=== PATIENT | female | born 1965 | race Caucasian/White ===

== ENCOUNTER 2017-03-23 11:08 | Observation (INO) | payer OTHER ==
[~2017-03-23] VITALS: Ht 162.6 cm; Wt 54.2 kg
[2017-03-23] MEDS ORDERED: ESOMEPRAZOLE MA20 MG PO (11:56)
[2017-03-23 13:03] LABS: HEMATOCRIT 40.9 % (36.0-46.0); MCH 29.1 PG (29.0-34.0); MCHC 33.5 G/DL (30.0-36.0); MCV 86.8 FL (83-99); MEAN PLAT.VOLUME 9.7 uM^3 (9.5-12.4); PLATELET COUNT 268 K/uL (156-360); RBC DIS.WIDTH-CV 11.8 % (11.8-14.6); RBC DIS.WIDTH-SD 38.1 % (39-53); RED BLOOD COUNT 4.71 M/uL (3.80-5.20); WHITE BLOOD COUNT 11.8 K/uL (4.1-10.2)
[2017-03-23 13:11] LABS: CHLORIDE 102 mEq/L (99-109); SODIUM 141 mEq/L (136-147)
[2017-03-23 13:13] LABS: GLUCOSE 84 mg/dL (70-99)
[2017-03-23 13:14] LABS: ANION GAP 11 MEQ/L (2-14)
[2017-03-23 13:15] LABS: TOTAL BILIRUBIN 0.6 mg/dL (0.0-1.0)
[2017-03-23 13:17] LABS: ALKALINE PHOSPHATASE 58 IU/L (3-129); GFR ESTIMATE (CALCULATED) > 59 mL/min/
[2017-03-23 13:18] LABS: UREA NITROGEN (BUN) 9 mg/dL (9-23)
[2017-03-23 13:24] LABS: TROP-I INTERPRETATION NEGATIVE; TROPONIN-I < 0.01 ng/mL (0.0-0.30)
[2017-03-23 15:20] LABS: TROP-I INTERPRETATION NEGATIVE; TROPONIN-I < 0.01 ng/mL (0.0-0.30)
[2017-03-23] MEDS ORDERED: VITAMIN D31000 UNIT PO (15:51)
[2017-03-23] MEDS ORDERED: ONE-A-DAY ESSE1 EAC1 PO (15:51)
[2017-03-23] MEDS ORDERED: BENADRYL ALLERG25 MG PO (15:51)
[2017-03-23 17:53] VITALS: BP 115/69
[2017-03-23 19:29] VITALS: BP 104/67
[2017-03-23 22:12] LABS: TROP-I INTERPRETATION NEGATIVE; TROPONIN-I < 0.01 ng/mL (0.0-0.30)
[2017-03-23 23:27] VITALS: BP 99/59
[2017-03-24 04:00] VITALS: BP 90/61
[2017-03-24 05:34] LABS: HEMATOCRIT 39.8 % (36.0-46.0); MCH 29.5 PG (29.0-34.0); MCHC 33.7 G/DL (30.0-36.0); MCV 87.5 FL (83-99); MEAN PLAT.VOLUME 9.2 uM^3 (9.5-12.4); PLATELET COUNT 247 K/uL (156-360); RBC DIS.WIDTH-SD 38.6 % (39-53); RED BLOOD COUNT 4.55 M/uL (3.80-5.20); WHITE BLOOD COUNT 8.3 K/uL (4.1-10.2)
[2017-03-24 05:37] LABS: TROP-I INTERPRETATION NEGATIVE; TROPONIN-I < 0.01 ng/mL (0.0-0.30)
[2017-03-24 05:48] LABS: ANION GAP 6 MEQ/L (2-14); CHLORIDE 105 MEQ/L (99-109); GFR ESTIMATE (CALCULATED) > 59 mL/min/; GLUCOSE 79 mg/dL (70-99); POTASSIUM 3.9 MEQ/L (3.7-5.4); SAMPLE HEMOLYSIS CHECK 0; SAMPLE ICTERIC CHECK 0; SAMPLE LIPEMIA CHECK 0; SODIUM 139 MEQ/L (136-147); UREA NITROGEN (BUN) 10 mg/dL (9-23)
[2017-03-24 06:54] VITALS: BP 84/55
[2017-03-24 11:37] VITALS: BP 93/60
[2017-03-24] MEDS ORDERED: SUCRALFATE1 GM PO (13:53)
[2017-03-24] MEDS ORDERED: XANAX0.25 MG PO (13:54)
== END 2017-03-24 15:10 | disposition home or self-care (01) ==
LOC: EME 11:08 → 5WEST 16:08 → EDOF 16:08 → ENRESERV 16:09 → 5WEST 17:46
PROVIDERS: Internal Medicine; Nurse Practitioner Family
DX: R10.13 Epigastric pain (principal); R07.9 Chest pain, unspecified; R94.31 Abnormal electrocardiogram [ECG] [EKG]
CPT/HCPCS: 71020; 80048; 80053; 84484; 85027; 93005; 99281; 99285; G0378